=== PATIENT | female | born 1950 | race Caucasian/White ===

== ENCOUNTER 2021-10-21 16:03 | Outpatient (CLI) | payer OTHER, SELFPAY | END 2021-10-21 16:04 | disposition home or self-care (01) | LOC: LKVREF 10-25 11:07 | PROVIDERS: Visit Provider Registered Nurse | DX: N30.00 Acute cystitis without hematuria (principal); B96.20 Unspecified Escherichia coli [E. coli] as the cause of diseases classified elsewhere | CPT/HCPCS: 87086; 87186 ==